=== PATIENT | male | born 1980 | race Caucasian/White ===

== ENCOUNTER 2020-12-05 21:13 | Emergency (ER) | payer OTHER | END 2020-12-06 01:10 | disposition home or self-care (01) | LOC: FER 21:13 | DX: S01.01XA Laceration without foreign body of scalp, initial encounter (principal); Z23 Encounter for immunization; W01.198A Fall on same level from slipping, tripping and stumbling with subsequent striking against other object, initial encounter | CPT/HCPCS: 70450; 90471; 90715 ==